=== PATIENT | female | born 1985 | race Caucasian/White ===

== ENCOUNTER → 2016-12-16 | Outpatient (REF) | payer MEDICAID ==
[~2016-12-16] MED LIST: ACET50TA PO; BUSP5TA GT; BUSP5TA PO; FLEX5TAB3 PO; IBUP80TA PO; PNV-CAP5 PO
== END ==
LOC: M LAB REF 13:07
PROVIDERS: ATTEND Advanced Practice Midwife
DX: Z34.83 Encounter for supervision of other normal pregnancy, third trimester (principal)

== ENCOUNTER 2017-01-03 08:47 | Inpatient (IN) | payer MEDICAID, OTHER ==
[2017-01-03] VITALS (58 sets, daily range): BP systolic 72–116; BP diastolic 42–81
[~2017-01-03] VITALS: Ht 157.5 cm; Wt 70.0 kg
[2017-01-03] MEDS ORDERED: PROZ10CA7 PO (09:08)
[2017-01-03] MEDS ORDERED: LACTATED RINGER'S 1000 ML IV STA (09:23)
[2017-01-03] MEDS ORDERED: OXYTOCIN DRIP 30 UNITS in APPROPRIATE DILUENT 1 EA IV SCH (09:30)
[2017-01-03] MEDS: LR 1,000 ML IV SCH (10:14)
[2017-01-03 10:36] LABS: MEAN CORPUSCULAR HEMOGLOBIN 28.4 pg (27.0-33.0); MEAN CORPUSCULAR HGB CONC 33.2 g/dl (32.0-36.5); MEAN CORPUSCULAR VOLUME 85.4 fl (80.0-96.0); RED CELL DISTRIBUTION WIDTH 14.4 % (11.5-14.5); WHITE BLOOD COUNT 9.6 K/mm3 (4.0-10.0)
[2017-01-03] MEDS ORDERED: FENTANYL 2MCG/ML ROPIVACAINE 0.2% NACL 250 ML CADD As Ordered ONE (15:43)
[2017-01-03] MEDS ORDERED: FENTANYL/ROPIVACAINE/NACL CADD 250 ML EPIDURAL SCH (16:45)
[2017-01-03] MEDS ORDERED: ONDANSETRON 4MG/2ML VIAL (J2405) IV PRN (16:45)
[2017-01-03] MEDS ORDERED: REFRIGERATOR IV KEYS XX PRN (16:45)
[2017-01-03] MEDS ORDERED: ePHEDrine SULFATE 25 MG/5 ML(5MG/ML) SYRINGE IV PRN (16:45)
[2017-01-03] MEDS ORDERED: EPIDURAL COMMENT XX SCH (16:45)
[2017-01-03] MEDS ORDERED: EPIDURAL/PCA KEYS XX PRN (16:45)
[2017-01-03] MEDS ORDERED: NALOXONE INJ 0.4 MG/1 ML VIAL (J2310) IV PRN (16:45)
[2017-01-03] MEDS ORDERED: LACTATED RINGER'S 1000 ML IV PRN (16:45)
[2017-01-03] MEDS ORDERED: diphenhydrAMINE INJ 50MG/ML VIAL (J1200) IV PRN (16:45)
[2017-01-04] VITALS (64 sets, daily range): BP systolic 66–108; BP diastolic 36–68
[2017-01-04] MEDS: LR 1,000 ML IV SCH ×3 (01:58→22:30)
[2017-01-04] MEDS ORDERED: ACETAMINOPHEN 500 MG TAB PO PRN (03:30)
--- NOTE | 2017-01-04 07:06 | HPE ---
DATE OF ADMISSION: 01/03/2017 31-year-old 3, para 1-0-1-1, estimated date of delivery 01/10/2017 here for elective induction of labor at 39 weeks. Denies regular contractions, loss of fluid or bleeding. Fetus is active. Unknown last menstrual period. Sonogram at 8 weeks confirmed her date. Anatomy scan within normal limits. Hessmer ordered for followup of choroid plexus cysts. Treated for depression through . OBSTETRICAL HISTORY: 2012 normal spontaneous vaginal viable male at 40 weeks, 7 pounds 6 ounces. History of rapid labor following Pitocin administration for premature rupture of membranes (PROM). 2016 early miscarriage. No known drug allergies. MEDICAL-SURGICAL: Depression. Tonsils and adenoids. FAMILY HISTORY: Noncontributory. SOCIAL HISTORY: . Partner and family supportive. Denies tobacco, alcohol, drugs or abuse. OBJECTIVE: Prepregnancy weight 145, total weight gain 15 pounds. A+, antibody negative, rubella immune, VDRL, Hep B, Hep C, HIV, gonorrhea, Chlamydia all negative. Hessmer low risk. 1-hour glucose 117. Group B strep is negative. Vital signs are stable. She is afebrile and normotensive. She is in no apparent distress. Heart rate is regular. Respirations are easy. Abdomen is soft, gravid, longitudinal lie. Rare contractions. heart 150, moderate variability and accelerations. Cervix is 2 cm, 50% effaced, -3 station, soft and cephalic. ASSESSMENT: Multiparous at term for elective induction of labor at 39 weeks, category 1 tracing. PLAN: Admit per consult. Pitocin induction of labor. The patient plans epidural. Anticipate normal spontaneous vaginal .
[2017-01-04] MEDS ORDERED: BICITRA 30ML SOLN UDC PO ONE (13:00)
[2017-01-04] MEDS ORDERED: OXYTOCIN INJ 10 UNITS/ML VIAL (J2590) As Ordered ONE ×2 (13:01→13:44)
[2017-01-04] MEDS ORDERED: ePHEDrine SULFATE 25 MG/5 ML(5MG/ML) SYRINGE As Ordered ONE (13:01)
[2017-01-04] MEDS ORDERED: MORPHINE PRES-FREE INJ 10 MG/10 ML VIAL (J2274) As Ordered ONE (13:01)
[2017-01-04] MEDS ORDERED: ePHEDrine INJ 50 MG/ML VIAL As Ordered ONE (13:01)
[2017-01-04] MEDS ORDERED: PHENYLephrine HCL 500 MCG/5 ML (100MCG/ML) SYRINGE (J2370) As Ordered ONE (13:01)
[2017-01-04] MEDS ORDERED: NALOXONE INJ 0.4 MG/1 ML VIAL (J2310) IV PRN ×2 (13:15)
[2017-01-04] MEDS ORDERED: METOCLOPRAMIDE INJ 10MG/2ML VIAL (J2765) IV PRN (13:15)
[2017-01-04] MEDS ORDERED: NALBUPHINE HCL 10 MG/ML AMP (J2300) IV PRN ×2 (13:15→15:45)
[2017-01-04] MEDS ORDERED: ONDANSETRON 4MG/2ML VIAL (J2405) IV PRN ×2 (13:15→15:45)
[2017-01-04] MEDS ORDERED: EPINEPHrine 1MG/10ML SYRINGE 1.5IN As Ordered ONE (13:28)
[2017-01-04] MEDS ORDERED: KETOROLAC 60 MG/2 ML VIAL (J1885) As Ordered ONE (13:33)
[2017-01-04] MEDS ORDERED: ONDANSETRON 4MG/2ML VIAL (J2405) As Ordered ONE (13:33)
[2017-01-04 14:00] LABS: CORD GAS ABE A -4.9; CORD GAS ABE V -3.5; CORD GAS HCO3 A 18.7 MEQ/L; CORD GAS HCO3 V 20.4 MEQ/L; CORD GAS O2 SAT A 77.9 %; CORD GAS O2 SAT V 72.5 %; CORD GAS PCO2 A 31.6 mmHg; CORD GAS PH A 7.391 UNITS; CORD GAS PH V 7.396 UNITS; CORD GAS PO2 A 31.9 mmHg; CORD GAS PO2 V 29.4 mmHg; CORD GAS TCO2 A 19.7 MEQ/L; CORD GAS TCO2 V 21.4 MEQ/L
[2017-01-04] MEDS ORDERED: DOCUSATE SODIUM 100 MG CAP PO PRN (14:45)
[2017-01-04] MEDS ORDERED: MEASLES,MUMPS,RUBELLA VACCINE INJ (MMR-II) (90707) SC SCH (14:45)
[2017-01-04] MEDS ORDERED: RHOGAM 300 MCG (1500 IU) INJ (J2790) IM SCH (14:45)
[2017-01-04] MEDS ORDERED: OXYTOCIN DRIP 30 UNITS in APPROPRIATE DILUENT 1 EA IV ONE (14:45)
[2017-01-04] MEDS ORDERED: MOM 30ML SUSPENSION UDC PO PRN (14:45)
[2017-01-04] MEDS ORDERED: IBUP800T23 PO (14:49)
[2017-01-04] MEDS ORDERED: PERCOCET PO (14:51)
[2017-01-04] MEDS ORDERED: OXYTOCIN 30 UNITS IN 0.9% NaCl 500ML IV BAG (J2590) As Ordered ONE (15:00)
--- NOTE | 2017-01-04 15:14 | RO ---
DATE OF PROCEDURE: 01/04/2017 PREPROCEDURE DIAGNOSIS: Arrest of dilation. POSTPROCEDURE DIAGNOSIS: 1. Arrest of dilation. 2. Chorioamnionitis. SURGEON: Leeanne Conte MD OENOLOGIST: Guerrero Yung DO ANESTHESIA: Spinal. ESTIMATED BLOOD LOSS: 750 mL. INTRAVENOUS FLUIDS: 1800 mL of lactated Ringer solution. URINE OUTPUT: 100 mL. PREOPERATIVE ANTIBIOTIC: 2 grams of Ancef. OPERATIVE FINDINGS: Live born male infant. signs 8 and 9. Weight 3388 grams, 7 pounds 5 ounces. Upon entering the uterus, there was a foul smelling odor that was consistent with chorioamnionitis, along with maternal tachycardia and borderline maternal temperature. SPECIMENS: Cord blood and placenta, as well as cord gases of 7.39, 7.39, base excess is -4.9 and -3.5, respectively. DESCRIPTION OF OPERATION: After informed consent was obtained and written content was reviewed, the patient was brought to the operating room where her epidural was pulled and spinal anesthesia was obtained. She was then placed in the supine position with a left lateral tilt. She had previously had a Herndon catheter that was set to gravity. She was then prepped and draped in a normal sterile fashion. A time out in the operating room was then performed identifying the patient, the procedure to be performed, as well as drug allergies. Anesthesia was tested and deemed to be adequate. A Pfannenstiel skin incision was then made and carried down to the underlying rectus fascia. The fascia was scored and this incision was extended bilaterally. The fascia was then dissected off the underlying rectus muscles, both superiorly and inferiorly. The rectus muscles were then in the midline. The peritoneum was then entered. The vesicouterine peritoneum was then identified and was tented and excised to create a bladder flap. The bladder blade was then placed to retract back the bladder. A curvilinear incision was then made in the lower uterine segment. The uterine cavity was then entered. The head was brought to the level of the incision atraumatically, followed by delivery of shoulders and corpus. The infant was taken over to the warmer with a good cry. Cord blood was then obtained, as well as cord gases. The placenta was then delivered grossly intact. The uterus was then exteriorized and cleared of all clots and debris. The uterine incision was then closed in two layers using #0 Vicryl for the first layer in a running locking fashion, followed by a second layer for imbrication in a running nonlocking fashion. Several figure of eight stitches were placed for hemostasis. The abdomen was then suctioned. The uterus was returned to the patient's abdomen. It was reinspected and noted to be hemostatic. The anterior peritoneum was then reapproximated with #3-0 Vicryl. The rectus muscles were reapproximated using #3-0 Vicryl. The fascia was then closed using #0 Vicryl in a running nonlocking fashion. The subcutaneous tissue was then irrigated and suctioned. Subcutaneous tissue was then reapproximated using #3-0 Vicryl. Several subdermal stitches were placed with #3-0 Vicryl and the skin was closed with #4-0 Monocryl in a subcuticular fashion. The incision was then cleaned and dried. Mastisol was applied above and below the incision. Steri-Strips were applied over the incision. The incision was then dressed. The patient was then taken out of lithotomy position and taken to recovery in stable condition. The couple has decided to name their son, Caesar. The patient will start on triple antibiotics for treatment for chorioamnionitis. SHIRIN
[2017-01-04] MEDS ORDERED: fentaNYL 100 MCG/2 ML INJECTION (J3010) IV PRN (15:45)
[2017-01-04] MEDS ORDERED: LR 1,000 ML IV SCH (15:45)
[2017-01-04] MEDS ORDERED: MEPERIDINE INJ 25 MG/ML VIAL (J2175) IV PRN (15:45)
[2017-01-04] MEDS: AMPICILLIN SOD 2 GM in D5W MINI-BAG PLUS 100 ML IV SCH ×2 (16:49→22:29)
[2017-01-04] MEDS ORDERED: FLUoxetine 10 MG CAP PO ONE (17:00)
[2017-01-04] MEDS: CLINDAMYCIN 900 MG in APPROPRIATE DILUENT 1 EA IV SCH (17:29)
[2017-01-04] MEDS ORDERED: GENTAMICIN IV SCH (18:00)
[2017-01-04] MEDS ORDERED: D5W IV SCH (18:00)
[2017-01-04] MEDS: KETOROLAC 30 MG/ML VIAL (J1885) IV SCH (20:01)
[2017-01-05] VITALS (7 sets, daily range): BP systolic 75–105; BP diastolic 44–59
[2017-01-05] MEDS: KETOROLAC 30 MG/ML VIAL (J1885) IV SCH ×2 (01:52→07:48)
[2017-01-05] MEDS: CLINDAMYCIN 900 MG in APPROPRIATE DILUENT 1 EA IV SCH ×2 (01:52→08:38)
[2017-01-05] MEDS: AMPICILLIN SOD 2 GM in D5W MINI-BAG PLUS 100 ML IV SCH ×2 (04:06→09:37)
[2017-01-05] MEDS: PERCOCET 5MG/325MG TAB PO PRN ×3 (04:14→21:19)
[2017-01-05] MEDS: LR 1,000 ML IV SCH (06:38)
[2017-01-05 07:16] LABS: MEAN CORPUSCULAR HEMOGLOBIN 28.1 pg (27.0-33.0); MEAN CORPUSCULAR HGB CONC 32.4 g/dl (32.0-36.5); MEAN CORPUSCULAR VOLUME 86.7 fl (80.0-96.0); RED CELL DISTRIBUTION WIDTH 14.9 % (11.5-14.5); WHITE BLOOD COUNT 15.6 K/mm3 (4.0-10.0)
[2017-01-05] MEDS: FLUoxetine 10 MG CAP PO SCH (08:38)
[2017-01-05] MEDS: PRENATAL VITAMIN TAB PO SCH (08:38)
[2017-01-05] MEDS: IBUPROFEN 800 MG TAB PO SCH (17:20)
[2017-01-05] MEDS ORDERED: IBUPROFEN 800 MG TAB PO SCH (22:00)
[2017-01-06] MEDS: IBUPROFEN 800 MG TAB PO SCH ×3 (00:44→16:34)
[2017-01-06 02:14] VITALS: BP 90/53
[2017-01-06 06:21] VITALS: BP 88/50
[2017-01-06 06:45] LABS: BASO % 0.3 % (0.0-1.0); EOS # 0.2 K/mm3 (0.0-0.50); LARGE UNSTAINED CELL # 0.1 K/mm3 (0.0-0.4); LARGE UNSTAINED CELL % 1.2 % (0.0-4.0); LYMPH # 1.8 K/mm3 (1.5-4.5); LYMPH % 16.9 % (24.0-44.0); MEAN CORPUSCULAR HEMOGLOBIN 27.5 pg (27.0-33.0); MEAN CORPUSCULAR HGB CONC 31.9 g/dl (32.0-36.5); MEAN CORPUSCULAR VOLUME 86.3 fl (80.0-96.0); MONO # 0.3 K/mm3 (0.0-0.8); NEUTROPHILS # 8.4 K/mm3 (1.8-7.7); NEUTROPHILS % 76.6 % (36.0-66.0); PLATELET COUNT, AUTOMATED 207 k/mm3 (150-450); RED CELL DISTRIBUTION WIDTH 14.7 % (11.5-14.5); WHITE BLOOD COUNT 10.9 K/mm3 (4.0-10.0)
[2017-01-06] MEDS: FLUoxetine 10 MG CAP PO SCH (08:19)
[2017-01-06] MEDS: PRENATAL VITAMIN TAB PO SCH (08:19)
[2017-01-06] MEDS: PERCOCET 5MG/325MG TAB PO PRN ×2 (12:22→21:47)
[2017-01-06 18:10] VITALS: BP 106/57
[2017-01-06] MEDS: FERROUS SULFATE 325MG TAB PO SCH (21:45)
[2017-01-07] MEDS: IBUPROFEN 800 MG TAB PO SCH ×2 (01:36→09:00)
[2017-01-07 05:50] VITALS: BP 94/54
--- NOTE | 2017-01-07 07:46 | DSES ---
DATE OF ADMISSION: 01/03/2017 DATE OF DISCHARGE: 01/07/2017 DISCHARGE DIAGNOSES: 1. Primary section postop day #3. 2. Anemia. SURGEON: Dr. Leeanne Conte HISTORY: Erin is a 31-year-old, underwent primary section for arrest of dilation and chorioamnionitis. On 01/04/2017, she delivered a live male weighing 3388 grams (7 pounds 5 ounces), 8/9. Also of note, chorioamnionitis. Her postoperative care has been complicated by a low hemoglobin and hematocrit. She is asymptomatic, however. Denies dizziness, lightheadedness, headaches and heart palpitations. Preoperative CBC: Hemoglobin 9.9, hematocrit 29.7, platelets were 268. Postoperatively on day #1, her hemoglobin was 6.8, hematocrit 21.1 and platelets 208. Postoperative day #2, hemoglobin 6.0, hematocrit 18.9 and platelets were 207. Her vital signs are stable. Her temperature today is 97.3, pulse 82, respirations 18, blood pressure is 94/54. She has been out of bed for self care and tab care and she has ambulated back and forth to the intensive care unit without any difficulties. She does report some fatigue, however. Breast-feeding has been initiated. Her breasts are soft and nontender. Abdomen: Fundus firm at U. Incision and Steri-Strips are well approximated. There is no drainage. No redness. No warmth. No edema. Perineum is intact. Lochia rubra scant. Bilateral lower extremities negative edema. ASSESSMENT: Postop day #3 chorioamnionitis resolved, anemia stable condition. PLAN: Discharge the patient to home today. Prescriptions for Percocet, ibuprofen and iron have been faxed to her pharmacy. I did review discharge instructions that include breast care, incision care, tab care, pelvic rest, activity and lifting restrictions, access to care and other danger signs in which to report. She is to followup at [facility] for a 2 week incision check and a 6 week visit.
[2017-01-07] MEDS: PRENATAL VITAMIN TAB PO SCH (09:01)
[2017-01-07] MEDS: FLUoxetine 10 MG CAP PO SCH (09:01)
[2017-01-07] MEDS: FERROUS SULFATE 325MG TAB PO SCH (09:01)
[2017-01-07] MEDS ORDERED: FERR325T3 PO (10:22)
== END 2017-01-07 10:30 | disposition home or self-care (01) | DRG 540 ==
LOC: M LDI 08:47 → M OBS 01-04 16:14
PROVIDERS: ADMIT Advanced Practice Midwife; ATTEND Advanced Practice Midwife
PROC: 3E033VJ Introduction of Other Hormone into Peripheral Vein, Percutaneous Approach (ICD-10-PCS; 2017-01-03)
PROC: 10D00Z1 Extraction of Products of Conception, Low, Open Approach (ICD-10-PCS; principal; 2017-01-04 13:29)
DX: O65.4 Obstructed labor due to fetopelvic disproportion, unspecified (principal); O41.1230 Chorioamnionitis, third trimester, not applicable or unspecified; Z37.0 Single live birth; Z3A.39 39 weeks gestation of pregnancy

== ENCOUNTER → 2017-02-20 | Outpatient (REF) | payer OTHER ==
[~2017-02-20] MED LIST changes: +FERR325T3 PO; +IBUP800T23 PO; +PERCOCET PO; +PROZ10CA7 PO
== END ==
LOC: M LAB 11:42
PROVIDERS: ATTEND Physician Assistant Medical
DX: J10.1 Influenza due to other identified influenza virus with other respiratory manifestations (principal)

== ENCOUNTER → 2017-04-20 | Outpatient (REF) | payer OTHER | LOC: M LAB REF 13:40 | PROVIDERS: ATTEND Nurse Practitioner Adult Health | DX: D50.9 Iron deficiency anemia, unspecified (principal) ==

== ENCOUNTER → 2018-02-10 | Outpatient (REF) | payer OTHER ==
[2018-02-10 22:55] LABS: INFLUENZA A AMPLIFICATION NEGATIVE (NEGATIVE); INFLUENZA B AMPLIFICATION NEGATIVE (NEGATIVE)
== END ==
LOC: M LAB REF 21:30
DX: Z11.59 Encounter for screening for other viral diseases (principal)
CPT/HCPCS: 87502

== ENCOUNTER → 2018-12-28 | Outpatient (REF) | payer OTHER ==
[~2018-12-28] MED LIST changes: +IBUP1TAB7 PO; -IBUP800T23 PO
[2018-12-28 11:59] LABS: APPEARANCE, URINE CLOUDY (CLEAR); BACTERIA, URINE AUTO NEGATIVE (NEGATIVE); BILIRUBIN, URINE AUTO NEGATIVE (NEGATIVE); BLOOD, URINE BLOOD NEGATIVE (NEGATIVE); COLOR, URINE YELLOW (YELLOW); GLUCOSE, URINE (UA) AUTO NEGATIVE (NEGATIVE); KETONE, URINE AUTO NEGATIVE (NEGATIVE); LEUKOCYTE ESTERASE, URINE AUTO NEGATIVE (NEGATIVE); MUCUS, URINE SMALL (NEGATIVE); NITRITE, URINE AUTO NEGATIVE (NEGATIVE); PROTEIN, URINE AUTO NEGATIVE (NEGATIVE); RBC, URINE AUTO 1 /HPF (0-3); SPECIFIC GRAVITY URINE AUTO 1.027 (1.002-1.035); SQUAMOUS EPITHELIAL CELL UR AU 22 /HPF (0-6); UROBILINOGEN, URINE AUTO 0.2 mg/dL (0.0-2.0); WBC, URINE AUTO 2 /HPF (0-3)
[2018-12-28 12:06] LABS: ALT/SGPT 17 U/L (12-78); BILIRUBIN,TOTAL 0.3 MG/DL (0.2-1.0); BLOOD UREA NITROGEN 17 MG/DL (7-18); CALCIUM LEVEL 8.8 MG/DL (8.5-10.1); CARBON DIOXIDE LEVEL 27 MEQ/L (21-32); CHLORIDE LEVEL 105 MEQ/L (98-107); CREATININE FOR GFR 0.86 MG/DL (0.55-1.30); GLOMERULAR FILTRATION RATE > 60.0 (>60); GLUCOSE, FASTING 85 MG/DL (70-100); POTASSIUM SERUM 4.1 MEQ/L (3.5-5.1); SODIUM LEVEL 141 MEQ/L (136-145); TOTAL PROTEIN 7.5 GM/DL (6.4-8.2)
[2018-12-28 12:16] LABS: HCG, SERUM QUALITATIVE NEGATIVE (NEGATIVE)
== END ==
LOC: M SFHCLERA 09:16
PROVIDERS: ATTEND Family Medicine
DX: R10.84 Generalized abdominal pain (principal)

== ENCOUNTER → 2021-04-09 | Outpatient (REF) | payer OTHER ==
[~2021-04-09] MED LIST changes: -ACET50TA PO; +MAPA500T17 PO
== END ==
LOC: M LAB REF 11:12
PROVIDERS: ATTEND Physician Assistant Medical
DX: N39.0 Urinary tract infection, site not specified (principal)

== ENCOUNTER → 2021-06-10 | Outpatient (CLI) | payer OTHER ==
[~2021-06-10] MED LIST changes: +BUPR150T12 PO; +MICR1TAB18 PO; +ZYRTTAB8 PO
== END ==
LOC: M LABSMTC 10:14
PROVIDERS: ATTEND Anesthesiology
DX: Z01.812 Encounter for preprocedural laboratory examination (principal); Z20.822 Contact with and (suspected) exposure to COVID-19

== ENCOUNTER 2021-06-15 11:26 | Day surgery (SDC) | payer OTHER ==
[~2021-06-15] VITALS: Ht 157.5 cm; Wt 72.0 kg
[~2021-06-15 11:26] MED LIST changes: +LIDOCAINE 1% MDV 20ML VIAL SQ PRN; +LR 1,000 ML IV ONE
[2021-06-15] MEDS ORDERED: MIDAZOLAM INJ 2MG/2ML VIAL (J2250 PER 1MG) As Ordered ONE (12:11)
[2021-06-15] MEDS ORDERED: fentaNYL 100 MCG/2 ML INJECTION (J3010) As Ordered ONE (12:11)
[2021-06-15 12:16] LABS: HEMATOCRIT 38.7 % (36.0-47.0); HEMOGLOBIN 13.1 g/dl (12.0-15.5); MEAN CORPUSCULAR HGB CONC 33.9 g/dl (32.0-36.5); MEAN CORPUSCULAR VOLUME 91.5 fl (80.0-96.0); PLATELET COUNT, AUTOMATED 231 10^3/uL (150-450); RED BLOOD COUNT 4.23 10^6/uL (4.00-5.40); WHITE BLOOD COUNT 7.2 10^3/uL (4.0-10.0)
--- NOTE | 2021-06-15 12:39 | ROOPDOC ---
[facility] Report Of Operation Report of Operation DATE OF PROCEDURE: 06/15/21 PREPROCEDURE DIAGNOSES: Undesired fertility. POSTPROCEDURE DIAGNOSES: Same. PROCEDURE PERFORMED: Laparoscopic bilateral salpingectomy. SURGEON: Addis Sagastume MD ANESTHESIA: GETA. ESTIMATED BLOOD LOSS: Approximately 10 mL. COMPLICATIONS: none. FINDINGS: Normal uterus fallopian tubes and ovaries. Normal upper abdomen. SPECIMENS REMOVED: Bilateral fallopian tubes PROCEDURE NOTE: The patient was taken to the operating room where general endotracheal anesthesia was induced. She was prepped and draped in a sterile fashion in the dorsal lithotomy position. A sponge stick was placed in the vagina to use as a manipulator. A periumbilical incision was made with a scalpel. A Veress needle was placed through this incision while tenting up on the skin of the abdomen. An intra-abdominal location the Veress needle was assessed with the use of a saline filled syringe. A pneumoperitoneum was created. The Veress needle was removed. A 5 mm trocar using Visiport was inserted through this incision. A 5 and 8 mm suprapubic port were placed under direct visualization. A grasping instrument was used to elevate each fallopian tube. A LigaSure device was used to coagulate and incise broad ligament attachments to the fallopian tube. Both tubes were excised near their origin. Both tubes were removed through the suprapubic port. The pneumoperitoneum was released. All instruments were removed. The skin was closed with 4-0 Monocryl subcuticular sutures. Sponge instrument and needle counts were correct. The patient went to the recovery room in stable condition. ADDIS SAGASTUME MD Jun 15, 2021 12:39
[2021-06-15] MEDS ORDERED: OXYC1TAB23 PO (12:40)
[2021-06-15] MEDS ORDERED: IBUP-1022 PO (12:41)
[2021-06-15] MEDS ORDERED: BUPIVACAINE HCL 0.25% 10ML VIAL As Ordered ONE (12:45)
[2021-06-15] MEDS ORDERED: ACETAMINOPHEN 1000MG 100ML IV BTL (OFIRMEV) (J0131 PER 10MG) As Ordered ONE (13:13)
[2021-06-15] MEDS ORDERED: propofoL 200 MG/20 ML VIAL As Ordered ONE (13:19)
[2021-06-15] MEDS ORDERED: dexameTHASONE 4 MG/ML 1ML VIAL (J1100 PER 1MG) As Ordered ONE (13:20)
[2021-06-15] MEDS ORDERED: LIDOCAINE 2% 100MG/5ML SDV (FOR ANES.) As Ordered ONE (13:20)
[2021-06-15] MEDS ORDERED: ROCURONIUM BROMIDE 50 MG/5 ML VIAL As Ordered ONE (13:20)
[2021-06-15] MEDS ORDERED: ONDANSETRON 4MG/2ML VIAL As Ordered ONE ×2 (13:20→13:57)
[2021-06-15] MEDS ORDERED: METOCLOPRAMIDE INJ 10MG/2ML VIAL (J2765 PER 1) As Ordered ONE (13:20)
[2021-06-15] MEDS ORDERED: SUGAMMADEX SODIUM 500 MG/5 ML VIAL (BRIDION) As Ordered ONE (13:20)
[2021-06-15] MEDS ORDERED: KETOROLAC 60MG 2ML VIAL As Ordered ONE (13:24)
[2021-06-15] MEDS ORDERED: HYDROmorphone HCL 2 MG/ML 1ML VIAL (J1170) As Ordered ONE (13:47)
[2021-06-15] MEDS ORDERED: ONDANSETRON 4MG/2ML VIAL IV PRN (14:20)
[2021-06-15] MEDS ORDERED: oxyCODONE 5MG TAB PO PRN (14:20)
[2021-06-15] MEDS ORDERED: LR 1,000 ML IV SCH ×2 (14:20)
[2021-06-15] MEDS ORDERED: fentaNYL 100 MCG/2 ML INJECTION (J3010) IV PRN (14:20)
[2021-06-15] MEDS ORDERED: PERCOCET 5MG/325MG TAB PO PRN (14:25)
[2021-06-15 15:15] VITALS: BP 111/62
== END 2021-06-15 15:15 | disposition home or self-care (01) ==
LOC: M SDC 11:26
PROVIDERS: ATTEND Specialist
DX: Z30.2 Encounter for sterilization (principal); G43.909 Migraine, unspecified, not intractable, without status migrainosus; Z79.899 Other long term (current) drug therapy; F41.9 Anxiety disorder, unspecified; F32.9 Major depressive disorder, single episode, unspecified
CPT/HCPCS: 36415; 58661; 81025; 85027; 88302; J0131; J1100; J1170; J1885; J2250; J2405; J2765; J3010

== ENCOUNTER → 2022-01-12 | Outpatient (REF) | payer OTHER ==
[~2022-01-12] MED LIST changes: +IBUP-1022 PO; -LIDOCAINE 1% MDV 20ML VIAL SQ PRN; -LR 1,000 ML IV ONE; +OXYC1TAB23 PO
== END ==
LOC: M LAB REF 12:43
PROVIDERS: ATTEND Nurse Practitioner Adult Health
DX: R30.0 Dysuria (principal)

== ENCOUNTER → 2023-01-17 | Outpatient (REF) | payer BC ==
[~2023-01-17] MED LIST changes: -MICR1TAB18 PO; +NORE1TAB94 PO
== END ==
LOC: M LAB REF 12:08
PROVIDERS: ATTEND Nurse Practitioner Adult Health
DX: R10.13 Epigastric pain (principal)

== ENCOUNTER → 2023-02-18 | Outpatient (CLI) | payer BC | LOC: M OUTALCOH 07:23 | PROVIDERS: ATTEND Psychiatry & Neurology Psychiatry | DX: Z13.39 Encounter for screening examination for other mental health and behavioral disorders (principal) ==

== ENCOUNTER 2023-05-14 17:30 | Emergency (ER) | payer BC ==
[~2023-05-14] VITALS: Ht 160 cm; Wt 78.3 kg
[2023-05-14 17:30] VITALS: TEMP 98.1
[2023-05-14] MEDS ORDERED: NS 1,000 ML IV ONE (19:15)
[2023-05-14 19:48] LABS: BASO % 0.5 % (0.0-1.0); EOS # 0.2 10^3/uL (0.0-0.5); EOS % 2.6 % (0.0-3.0); HEMATOCRIT 39.1 % (36.0-47.0); HEMOGLOBIN 13.6 g/dl (12.0-15.5); LYMPH % 34.1 % (24.0-44.0); MEAN CORPUSCULAR HEMOGLOBIN 30.7 pg (27.0-33.0); MEAN CORPUSCULAR HGB CONC 34.8 g/dl (32.0-36.5); MEAN CORPUSCULAR VOLUME 88.3 fl (80.0-96.0); MONO # 0.8 10^3/uL (0.0-0.8); MONO % 8.6 % (2.0-8.0); NEUTROPHILS # 4.7 10^3/uL (1.5-8.5); NEUTROPHILS % 53.9 % (36.0-66.0); PLATELET COUNT, AUTOMATED 244 10^3/uL (150-450); RED BLOOD COUNT 4.43 10^6/uL (4.00-5.40); WHITE BLOOD COUNT 8.7 10^3/uL (4.0-10.0)
[2023-05-14] MEDS ORDERED: ISOVUE-370 76% 100ML VIAL As Ordered ONE (19:59)
[2023-05-14] MEDS ORDERED: KETOROLAC 30 MG/ML 1ML VIAL IV ONE (20:00)
[2023-05-14 20:05] LABS: ALBUMIN 4.3 G/DL (3.2-5.2); BILIRUBIN,DIRECT 0.1 MG/DL (<0.4); BILIRUBIN,TOTAL 0.5 MG/DL (0.3-1.2)
[2023-05-14] MEDS ORDERED: KETO10TAB PO (21:28)
[2023-05-14] MEDS ORDERED: KETOROLAC TROMETHAMINE 10 MG TAB PO ONE ×2 (21:35→22:00)
[2023-05-14 22:15] VITALS: BP 142/82; O2SAT 99
== END 2023-05-14 22:57 | disposition home or self-care (01) ==
LOC: M ED 17:30
DX: N83.291 Other ovarian cyst, right side (principal); K44.9 Diaphragmatic hernia without obstruction or gangrene; G43.909 Migraine, unspecified, not intractable, without status migrainosus; F10.10 Alcohol abuse, uncomplicated; F41.9 Anxiety disorder, unspecified; Z87.42 Personal history of other diseases of the female genital tract; Z79.899 Other long term (current) drug therapy
CPT/HCPCS: 74177; 76856; 80047; 80076; 81001; 83690; 84702; 85025; 93976; 96374; 99284; J1885; Q9967

== ENCOUNTER → 2023-07-14 | Outpatient (CLI) | payer BC ==
[~2023-07-14] MED LIST changes: +KETO10TAB PO
== END ==
LOC: M WHC 14:46
PROVIDERS: ATTEND Specialist
DX: N83.201 Unspecified ovarian cyst, right side (principal)

== ENCOUNTER 2023-12-26 10:06 | Emergency (ER) | payer BC ==
[~2023-12-26] VITALS: Ht 157.5 cm; Wt 77.3 kg
[2023-12-26] MEDS: KETOROLAC 30 MG/ML 1ML VIAL IV ONE (15:01)
[2023-12-26] MEDS: METOCLOPRAMIDE INJ 10MG/2ML VIAL IV ONE (15:01)
[2023-12-26] MEDS: MECLIZINE 25 MG TABLET PO ONE (15:01)
[2023-12-26] MEDS: NS 1,000 ML IV ONE (15:02)
[2023-12-26 15:19] LABS: BASO % 0.4 % (0.0-1.0); EOS # 0.1 10^3/uL (0.0-0.5); EOS % 0.7 % (0.0-3.0); HEMATOCRIT 41.3 % (36.0-47.0); HEMOGLOBIN 14.1 g/dl (12.0-15.5); LYMPH # 1.9 10^3/uL (1.5-5.0); MEAN CORPUSCULAR HEMOGLOBIN 30.9 pg (27.0-33.0); MEAN CORPUSCULAR HGB CONC 34.1 g/dl (32.0-36.5); MEAN CORPUSCULAR VOLUME 90.4 fl (80.0-96.0); MONO # 0.6 10^3/uL (0.0-0.8); MONO % 8.3 % (2.0-8.0); NEUTROPHILS # 4.3 10^3/uL (1.5-8.5); NEUTROPHILS % 62.3 % (36.0-66.0); PLATELET COUNT, AUTOMATED 227 10^3/uL (150-450); RED BLOOD COUNT 4.57 10^6/uL (4.00-5.40); WHITE BLOOD COUNT 6.9 10^3/uL (4.0-10.0)
[2023-12-26 15:40] LABS: CK-MB VALUE MASS < 1.0 NG/ML (<3.6); LIPASE 34 U/L (12-53)
[2023-12-26 15:42] LABS: ALBUMIN 4.4 G/DL (3.2-5.2); ALKALINE PHOSPHATASE 74 U/L (46-116); ALT/SGPT 17 U/L (7.0-40); AST/SGOT 15 U/L (<34); BILIRUBIN,DIRECT 0.1 MG/DL (<0.4); BILIRUBIN,TOTAL 0.5 MG/DL (0.3-1.2); CPK CREATINE PHOSPHOKINASE 83 U/L (34-145); TOTAL PROTEIN 7.3 G/DL (5.7-8.2)
[2023-12-26] MEDS ORDERED: NORT10CA2 PO (18:24)
[2023-12-26] MEDS ORDERED: NORT25CA2 PO (18:24)
[2023-12-26] MEDS ORDERED: PRED20TA PO (18:27)
[2023-12-26 18:36] VITALS: BP 118/75; TEMP 97.6; O2SAT 100
== END 2023-12-26 18:39 | disposition home or self-care (01) ==
LOC: M ED 10:06
DX: G43.909 Migraine, unspecified, not intractable, without status migrainosus (principal); Z79.52 Long term (current) use of systemic steroids; Z79.811 Long term (current) use of aromatase inhibitors; Z79.899 Other long term (current) drug therapy
CPT/HCPCS: 70450; 70544; 70551; 71045; 80047; 80076; 82550; 82553; 83690; 84484; 84702; 85025; 93005; 96361; 96374; 99284; J1885; J2765

== ENCOUNTER → 2024-06-22 | Outpatient (REF) | payer BC ==
[~2024-06-22] MED LIST changes: +NORT10CA2 PO; +NORT25CA2 PO; +PRED20TA PO
== END ==
LOC: M LAB REF 12:23
PROVIDERS: ATTEND Internal Medicine
DX: N39.0 Urinary tract infection, site not specified (principal)

== ENCOUNTER → 2024-06-28 | Outpatient (REF) | payer BC | LOC: M LAB REF 16:18 | PROVIDERS: ATTEND Nurse Practitioner Adult Health | DX: N39.0 Urinary tract infection, site not specified (principal) ==

== ENCOUNTER → 2024-12-25 | Outpatient (CLI) | payer BC ==
[2024-12-25 09:30] LABS: BASO % 0.4 % (0.0-1.0); EOS # 0.2 10^3/uL (0.0-0.5); EOS % 2.5 % (0.0-3.0); HEMATOCRIT 39.8 % (36.0-47.0); HEMOGLOBIN 13.4 g/dl (12.0-15.5); LYMPH # 1.7 10^3/uL (1.5-5.0); LYMPH % 23.3 % (24.0-44.0); MEAN CORPUSCULAR HEMOGLOBIN 30.5 pg (27.0-33.0); MEAN CORPUSCULAR HGB CONC 33.7 g/dl (32.0-36.5); MEAN CORPUSCULAR VOLUME 90.5 fl (80.0-96.0); MONO # 0.5 10^3/uL (0.0-0.8); MONO % 7.1 % (2.0-8.0); NEUTROPHILS # 4.8 10^3/uL (1.5-8.5); NEUTROPHILS % 66.4 % (36.0-66.0); PLATELET COUNT, AUTOMATED 219 10^3/uL (150-450); WHITE BLOOD COUNT 7.2 10^3/uL (4.0-10.0)
[2024-12-25 10:18] LABS: ALBUMIN 3.9 G/DL (3.2-5.2); ALKALINE PHOSPHATASE 80 U/L (35-104); ALT/SGPT 16 U/L (7.0-40); AST/SGOT 9 U/L (<34); BILIRUBIN,TOTAL 0.4 MG/DL (0.3-1.2); BLOOD UREA NITROGEN 17 MG/DL (9-23); CALCIUM LEVEL 9.1 MG/DL (8.5-10.1); CARBON DIOXIDE LEVEL 29 MMOL/L (20-31); CHLORIDE LEVEL 107 MMOL/L (98-107); CREATININE FOR GFR 0.89 MG/DL (0.55-1.30); GLOMERULAR FILTRATION RATE > 60.0 (>60); GLUCOSE, FASTING 87 MG/DL (60-100); SODIUM LEVEL 144 MMOL/L (136-145); TOTAL PROTEIN 6.9 G/DL (5.7-8.2)
== END ==
LOC: M LAB 08:51
PROVIDERS: ATTEND Psychiatry & Neurology Neurology
DX: R51.9 Headache, unspecified (principal)

== ENCOUNTER → 2025-06-14 | Outpatient (CLI) | payer BC ==
[~2025-06-14] MED LIST changes: +NORE-23 PO; -NORE1TAB94 PO; +PROZ10CA11 PO; -PROZ10CA7 PO
== END ==
LOC: M WHC 08:31
PROVIDERS: ATTEND Nurse Practitioner Adult Health
DX: N93.8 Other specified abnormal uterine and vaginal bleeding (principal); N39.498 Other specified urinary incontinence

== ENCOUNTER → 2025-09-11 | Outpatient (REF) | payer BC ==
[~2025-09-11] MED LIST changes: -IBUP-1022 PO; +IBUP600T42 PO; +ZONI100C67 PO
[2025-09-11 13:47] LABS: APPEARANCE, URINE HAZY (CLEAR); BACTERIA, URINE AUTO 1+ (NEGATIVE); BILIRUBIN, URINE AUTO NEGATIVE (NEGATIVE); BLOOD, URINE BLOOD 1+ (NEGATIVE); GLUCOSE, URINE (UA) AUTO NEGATIVE (NEGATIVE); KETONE, URINE AUTO NEGATIVE (NEGATIVE); LEUKOCYTE ESTERASE, URINE AUTO NEGATIVE (NEGATIVE); NITRITE, URINE AUTO NEGATIVE (NEGATIVE); PROTEIN, URINE AUTO NEGATIVE (NEGATIVE); RBC, URINE AUTO 0 /HPF (0-3); SPECIFIC GRAVITY URINE AUTO 1.016 (1.002-1.035); SQUAMOUS EPITHELIAL CELL UR AU 9 /HPF (0-6); UROBILINOGEN, URINE AUTO 0.2 mg/dL (0.0-2.0); WBC, URINE AUTO 1 /HPF (0-3)
== END ==
LOC: M SMT 13:13
PROVIDERS: ATTEND Nurse Practitioner Family
DX: R39.15 Urgency of urination (principal)

== ENCOUNTER 2025-09-27 13:16 | Day surgery (SDC) | payer BC ==
[~2025-09-27] VITALS: Ht 160 cm; Wt 78.9 kg
[2025-09-27] MEDS ORDERED: LIDOCAINE 1% SDV 30 ML VIAL As Ordered ONE (13:37)
[2025-09-27] MEDS ORDERED: LIDOCAINE 2% 100 MG/5 ML SDV (FOR ANES.) As Ordered ONE (13:38)
[2025-09-27] MEDS ORDERED: dexAMETHasone 4 MG/ML 1 ML VIAL As Ordered ONE (13:39)
[2025-09-27 13:53] LABS: PLATELET COUNT, AUTOMATED 235 10^3/uL (150-450)
[2025-09-27] MEDS ORDERED: OXYB10TA23 PO (13:58)
[2025-09-27] MEDS ORDERED: LR 1,000 ML IV SCH (14:05)
[2025-09-27] MEDS ORDERED: KETOROLAC 30 MG/ML 1 ML VIAL As Ordered ONE (14:07)
[2025-09-27] MEDS ORDERED: ONDANSETRON 4MG/2ML VIAL As Ordered ONE (14:07)
[2025-09-27] MEDS ORDERED: MIDAZOLAM INJ 2 MG/2 ML VIAL As Ordered ONE (14:08)
[2025-09-27] MEDS: SCOPOLAMINE 1MG TRANSDERMAL PATCH TOP SCH (14:08)
[2025-09-27] MEDS ORDERED: ACETAMINOPHEN 1000MG/100ML IV BAG As Ordered ONE (14:25)
[2025-09-27 16:01] VITALS: BP 118/72; TEMP 97.9; O2SAT 99
== END 2025-09-27 16:20 | disposition home or self-care (01) ==
LOC: M SDC 13:16
PROVIDERS: ATTEND Specialist
DX: N92.0 Excessive and frequent menstruation with regular cycle (principal); Z98.51 Tubal ligation status; R39.15 Urgency of urination; F41.9 Anxiety disorder, unspecified; F32.A Depression, unspecified; Z79.899 Other long term (current) drug therapy; Z88.8 Allergy status to other drugs, medicaments and biological substances; Z90.89 Acquired absence of other organs
CPT/HCPCS: 36415; 58563; 85027; 88305; J0131; J1100; J1885; J2250; J2405; J3010